=== PATIENT | female | born 1990 | race Caucasian/White ===

== ENCOUNTER 2018-05-31 13:06 | Inpatient (IN) | payer MEDICAID ==
[2018-05-31] MEDS ORDERED: Water For Irrigation,Sterile 1,000 ML Container IRR PRN (13:54)
[2018-05-31] MEDS ORDERED: Methylergonovine 0.2 MG/1 ML Amp IM PRN (13:54)
[2018-05-31] MEDS ORDERED: Sodium Chloride 0.9% 10 ML Syringe FLUSH PRN (13:54)
[2018-05-31] MEDS ORDERED: Nalbuphine 10 MG/ML 10 ML MDV IVPUSH PRN (13:54)
[2018-05-31] MEDS ORDERED: Misoprostol 200 MCG Tab PO PRN (13:54)
[2018-05-31] MEDS ORDERED: Tranexamic Acid 1,000 MG in Sodium Chloride 0.9% 100 ML IV PRN (13:54)
[2018-05-31] MEDS ORDERED: Sodium Chloride 0.9% 2.5 ML Syringe FLUSH PRN (13:54)
[2018-05-31] MEDS ORDERED: Butorphanol 1 MG/ML SDV IVPUSH PRN (13:54)
[2018-05-31] MEDS ORDERED: Carboprost Tromethamine 250 MCG/1 ML Amp IM PRN (13:54)
[2018-05-31] MEDS ORDERED: Lidocaine 1% 50 ML MDV INJECT PRN (13:54)
[2018-05-31] MEDS ORDERED: Misoprostol 25 MCG (1/4 of 100 MCG) Tab PO ONE (13:55)
[2018-05-31] MEDS ORDERED: Oxytocin/0.9 % Sodium Chloride 30 UNIT/500 ML BAG IV SCH (14:00)
[2018-05-31] MEDS ORDERED: Ampicillin 2 GM in Sodium Chloride 0.9% 100 ML IV ONE (14:30)
[2018-05-31] MEDS: Lactated Ringers 1,000 ML IV SCH ×3 (14:36→21:01)
--- NOTE | 2018-05-31 17:16 | PCM.LDHP ---
L&D History of Present Illness - General Date of Service: 05/31/18 Admit Problem/Dx: Patient Status Order with Admit Dx/Problem 05/31/18 13:14 Patient Status [ADT] Routine 05/31/18 13:54 Patient Status [ADT] Routine Admission Diagnosis/Problem Admission Diagnosis/Problem 05/31/18 17:10 28yo EDC06/25/2018 36 3/7wks gestation, A+, R-NI, GBS unknown, PROM this am at 1000. Not in active labor at that time. Source of Information: Patient History Limitations: Reports: No Limitations - History of Present Illness Pain Score: 10 Improves with: Reports: None Worsens with: Reports: None Associated Symptoms: Reports: N - Related Data Allergies/Adverse Reactions: Allergies Allergy/AdvReac Type Severity Reaction Status Date / Time No Known Allergies Allergy Verified 05/31/18 13:30 Home Medications: Home Meds Cholecalciferol (Vitamin D3) [Vitamin D3] 2 tab PO DAILY 05/31/18 [History] PNV95/Ferrous Fumarate/FA [ Tablet] 1 tab PO DAILY 05/31/18 [History] Past Medical History Genitourinary History: Reports: UTI, 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: - Past Surgical History Female Surgical History: Reports: Other (See Below) Other Female Surgeries/Procedures: Endometriosis surgery H&P Review of Systems - Review of Systems: Review Of Systems: See Below General: Reports: No Symptoms HEENT: Reports: No Symptoms Pulmonary: Reports: No Symptoms Cardiovascular: Reports: No Symptoms Gastrointestinal: Reports: No Symptoms Genitourinary: Reports: No Symptoms Musculoskeletal: Reports: No Symptoms Skin: Reports: No Symptoms Psychiatric: Reports: No Symptoms Neurological: Reports: No Symptoms Hematologic/Lymphatic: Reports: No Symptoms Immunologic: Reports: No Symptoms L&D Exam - Exam Exam: See Below - Vital Signs Weight: 70.307 kg - OB Specific Contraction Intensity: Moderate to Strong Movement: Active Heart Tones: Present Heart Tones per Min: 140 Heart Rate (FHR) Variability: Moderate (6-25 bmp) Presentation: Vertex Estimated Weight: 3100 - Felipe Score Felipe Score Cervix Position: Posterior Felipe Score Consistency: Soft (shameka) Felipe Score Effacement: >80% Felipe Score Dilation: 3-4 cm Felipe Score 's Station: -2 Felipe Score Total: 8 - Exam General: Alert, Oriented, Cooperative HEENT: Hearing Intact Lungs: Clear to Auscultation Cardiovascular: Regular Rate, Regular Rhythm, Normal S1, Normal S2 GI/Abdominal Exam: Soft Rectal Exam: Deferred Genitourinary: Cervical dilitation Back Exam: Normal Inspection, Full Range of Motion Extremities: Normal Inspection Skin: Warm, Dry, Intact Neurological: Cranial Nerves Intact, Reflexes Equal Bilateral, Strength Equal Bilateral, Normal Speech, Normal Tone Psychiatric: Alert, Normal Affect, Normal Mood - Patient Data Lab Results Last 24 hrs: Laboratory Results - last 24 hr 05/31/18 05/31/18 05/31/18 Range/Units 13:25 14:20 14:20 WBC 10.34 (4.0-11.0) K/uL RBC 3.77 L (4.30-5.90) M/uL Hgb 10.5 L (12.0-16.0) g/dL Hct 32.8 L (36.0-46.0) % MCV 87.0 (80.0-98.0) fL MCH 27.9 (27.0-32.0) pg MCHC 32.0 (31.0-37.0) g/dL RDW Std Deviation 45.3 (28.0-62.0) fl RDW Coeff of Maksim 14 (11.0-15.0) % Plt Count 149 L (150-400) K/uL MPV 12.50 H (7.40-12.00) fL Nucleated RBC % 0.0 /100WBC Nucleated RBCs # 0 K/uL Membrane Rupture POSITIVE Blood Type A POSITIVE Antibody Screen NEGATIVE Result Diagrams: 05/31/18 14:20 - Problem List (1) Supervision of normal IUP (intrauterine ) in primigravida SNOMED Code(s): 15593570, 460055940, 124371405, 062060269 ICD Code: Z34.00 - ENCNTR FOR SUPRVSN OF NORMAL FIRST , UNSP TRIMESTER Status: Acute Priority: High Current Visit: Yes Qualifiers: Trimester: third trimester Qualified Code(s): Z34.03 - Encounter for supervision of normal first , third trimester Problem List Initiated/Reviewed/Updated: Yes Orders Last 24hrs: Active Orders 24 hr Category Date Time Status Patient Status [ADT] Routine ADT 05/31/18 13:54 Active Heart Tones [RC] CONTINUOUS Care 05/31/18 13:54 Active Non Stress Test [RC] PER UNIT ROUTINE Care 05/31/18 13:14 Active Non Stress Test [RC] PER UNIT ROUTINE Care 05/31/18 13:54 Active May Shower [RC] ASDIRECTED Care 05/31/18 13:54 Active Notify Provider [RC] PRN Care 05/31/18 13:54 Active Up ad Venessa [RC] ASDIRECTED Care 05/31/18 13:14 Active Vaginal Exam [RC] Click to Edit Care 05/31/18 13:14 Active Vital Signs [RC] PER UNIT ROUTINE Care 05/31/18 13:14 Active CULTURE GROUP B STREP [RM] Routine Lab 05/31/18 14:45 Ordered Ampicillin 1 gm Med 05/31/18 18:30 Active Sodium Chloride 0.9% [Normal Saline] 50 ml IV Q4H Butorphanol [Stadol] Med 05/31/18 13:54 Active 1 mg IVPUSH Q1H PRN Carboprost Tromethamine [Hemabate DS] Med 05/31/18 13:54 Active 250 mcg IM ASDIRECTED PRN Lactated Ringers [Ringers, Lactated] 1,000 ml Med 05/31/18 14:00 Active IV ASDIRECTED Lidocaine 1% [Xylocaine 1%] Med 05/31/18 13:54 Active 50 ml INJECT .ONCE PRN Methylergonovine [Methergine] Med 05/31/18 13:54 Active 0.2 mg IM ASDIRECTED PRN Misoprostol [Cytotec] Med 05/31/18 13:54 Active 200 mcg PO .ONCE PRN Nalbuphine [Nubain] Med 05/31/18 13:54 Active 10 mg IVPUSH Q1H PRN Oxytocin/0.9 % Sodium Chloride [Oxytocin 30 Unit/500 ML Med 05/31/18 14:00 Active -NS] 30 unit in 500 ml IV TITRATE Sodium Chloride 0.9% [Saline Flush] Med 05/31/18 13:54 Active 10 ml FLUSH ASDIRECTED PRN Sodium Chloride 0.9% [Saline Flush] Med 05/31/18 13:54 Active 2.5 ml FLUSH ASDIRECTED PRN Tranexamic Acid [Cyklokapron] 1,000 mg Med 05/31/18 13:54 Active Sodium Chloride 0.9% [Normal Saline] 100 ml IV ONETIME Water For Irrigation,Sterile [Sterile Water for Med 05/31/18 13:54 Active Irrigation] 1,000 ml IRR ASDIRECTED PRN Scalp Electrode [WOMSER] Per Unit Routine Oth 05/31/18 13:54 Ordered Peripheral IV Insertion Adult [OM.PC] Routine Oth 05/31/18 13:54 Ordered Resuscitation Status Routine Resus Stat 05/31/18 13:14 Ordered Medication Orders Butorphanol Tartrate (Stadol) 1 mg IVPUSH Q1H PRN PRN Reason: Pain Carboprost Tromethamine (Hemabate Ds) 250 mcg IM ASDIRECTED PRN PRN Reason: Post Hemorrhage Tranexamic Acid 1,000 mg/ (Sodium Chloride) 110 mls @ 660 mls/hr IV ONETIME PRN PRN Reason: Bleeding Lactated Ringer's (Ringers, Lactated) 1,000 mls @ 150 mls/hr IV ASDIRECTED [facility] Last Admin: 05/31/18 14:36 Dose: 150 mls/hr Oxytocin/Sodium Chloride (Oxytocin 30 Unit/500 Ml-Ns) 30 unit in 500 mls @ 999 mls/hr IV TITRATE COUNT INCLUDES THE [facility] Ampicillin Sodium 1 gm/ Sodium (Chloride) 50 mls @ 100 mls/hr IV Q4H COUNT INCLUDES THE [facility] Lidocaine HCl (Xylocaine 1%) 50 ml INJECT .ONCE PRN PRN Reason: Laceration repair Methylergonovine Maleate (Methergine) 0.2 mg IM ASDIRECTED PRN PRN Reason: Post Hemorrhage Misoprostol (Cytotec) 200 mcg PO .ONCE PRN PRN Reason: Post Hemorrhage Nalbuphine HCl (Nubain) 10 mg IVPUSH Q1H PRN PRN Reason: Pain (severe 7-10) Last Admin: 05/31/18 16:42 Dose: 10 mg Sodium Chloride (Saline Flush) 10 ml FLUSH ASDIRECTED PRN PRN Reason: Keep Vein Open Sodium Chloride (Saline Flush) 2.5 ml FLUSH ASDIRECTED PRN PRN Reason: Keep Vein Open Sterile Water (Sterile Water For Irrigation) 1,000 ml IRR ASDIRECTED PRN PRN Reason: delivery Assessment/Plan Comment:: Labor A: 28yo EDC06/25/2018 36 3/7wks gestation, A+, R-NI, GBS unknown, PROM this am at 1000. Not in active labor at that time. P: Admit, Amp for GBS unknown, Cytotec po x1 to augment labor, epidural when in active labor, anticipate . Dr Meléndez updated
[2018-05-31] MEDS ORDERED: Ampicillin 1 GM in Sodium Chloride 0.9% 50 ML IV SCH (18:30)
--- NOTE | 2018-05-31 18:33 | PCM.PREANE ---
Preanesthetic Assessment - Anesthesia/Transfusion/Family Hx Anesthesia History: Prior Anesthesia Without Reaction Family History of Anesthesia Reaction: No Transfusion History: No Prior Transfusion(s) - Review of Systems General: No Symptoms Pulmonary: No Symptoms Cardiovascular: No Symptoms Gastrointestinal: No Symptoms Neurological: No Symptoms Other: Reports: None (Denies any personal or family hx of bleeding or clotting problems) - Physical Assessment Height: 1.63 m Weight: 70.307 kg ASA Class: 2 Mental Status: Alert & Oriented x3 Airway Class: Mallampati = 2 Dentition: Reports: Normal Dentition ROM/Head Extension: Full - Lab Values: Laboratory Last Values WBC 10.34 K/uL (4.0-11.0) 05/31/18 14:20 RBC 3.77 M/uL (4.30-5.90) L 05/31/18 14:20 Hgb 10.5 g/dL (12.0-16.0) L 05/31/18 14:20 Hct 32.8 % (36.0-46.0) L 05/31/18 14:20 MCV 87.0 fL (80.0-98.0) 05/31/18 14:20 MCH 27.9 pg (27.0-32.0) 05/31/18 14:20 MCHC 32.0 g/dL (31.0-37.0) 05/31/18 14:20 RDW Std Deviation 45.3 fl (28.0-62.0) 05/31/18 14:20 RDW Coeff of Maksim 14 % (11.0-15.0) 05/31/18 14:20 Plt Count 149 K/uL (150-400) L 05/31/18 14:20 MPV 12.50 fL (7.40-12.00) H 05/31/18 14:20 Nucleated RBC % 0.0 /100WBC 05/31/18 14:20 Nucleated RBCs # 0 K/uL 05/31/18 14:20 Membrane Rupture POSITIVE 05/31/18 13:25 Blood Type A POSITIVE 05/31/18 14:20 Antibody Screen NEGATIVE 05/31/18 14:20 - Allergies Allergies/Adverse Reactions: Allergies Allergy/AdvReac Type Severity Reaction Status Date / Time No Known Allergies Allergy Verified 05/31/18 13:30 - Acknowledgements Anesthesia Type Planned: Epidural Pt an Appropriate Candidate for the Planned Anesthesia: Yes Alternatives and Risks of Anesthesia Discussed w Pt/Guardian: Yes Pt/Guardian Understands and Agrees with Anesthesia Plan: Yes Additional Comments: Patient and significant other state that they have read and understand the blue anesthesia consent with risks and complications listed. They personally know someone who was paralyzed as the result of an epidural. PreAnesthesia Questionnaire Genitourinary History: Reports: UTI, Recurrent H[employer] IN[employer] History: Reports: - Past Surgical History Female Surgical History: Reports: Other (See Below) Other Female Surgeries/Procedures: Endometriosis surgery - SUBSTANCE USE Smoking Status *Q: Never Smoker Tobacco Use Within Last Twelve Months: No Recreational Drug Use History: No - HOME MEDS Home Medications: Home Meds Cholecalciferol (Vitamin D3) [Vitamin D3] 2 tab PO DAILY 05/31/18 [History] PNV95/Ferrous Fumarate/FA [ Tablet] 1 tab PO DAILY 05/31/18 [History] - CURRENT (IN HOUSE) MEDS Current Meds: Current Medications Butorphanol Tartrate (Stadol) 1 mg IVPUSH Q1H PRN PRN Reason: Pain Carboprost Tromethamine (Hemabate Ds) 250 mcg IM ASDIRECTED PRN PRN Reason: Post Hemorrhage Tranexamic Acid 1,000 mg/ (Sodium Chloride) 110 mls @ 660 mls/hr IV ONETIME PRN PRN Reason: Bleeding Lactated Ringer's (Ringers, Lactated) 1,000 mls @ 150 mls/hr IV ASDIRECTED [facility] Last Admin: 05/31/18 18:14 Dose: 150 mls/hr Oxytocin/Sodium Chloride (Oxytocin 30 Unit/500 Ml-Ns) 30 unit in 500 mls @ 999 mls/hr IV TITRATE [facility] Ampicillin Sodium 1 gm/ Sodium (Chloride) 50 mls @ 100 mls/hr IV Q4H [facility] Lidocaine HCl (Xylocaine 1%) 50 ml INJECT .ONCE PRN PRN Reason: Laceration repair Methylergonovine Maleate (Methergine) 0.2 mg IM ASDIRECTED PRN PRN Reason: Post Hemorrhage Misoprostol (Cytotec) 200 mcg PO .ONCE PRN PRN Reason: Post Hemorrhage Nalbuphine HCl (Nubain) 10 mg IVPUSH Q1H PRN PRN Reason: Pain (severe 7-10) Last Admin: 05/31/18 16:42 Dose: 10 mg Sodium Chloride (Saline Flush) 10 ml FLUSH ASDIRECTED PRN PRN Reason: Keep Vein Open Sodium Chloride (Saline Flush) 2.5 ml FLUSH ASDIRECTED PRN PRN Reason: Keep Vein Open Sterile Water (Sterile Water For Irrigation) 1,000 ml IRR ASDIRECTED PRN PRN Reason: delivery Discontinued Medications Ampicillin Sodium 2 gm/ Sodium (Chloride) 100 mls @ 200 mls/hr IV ONETIME ONE Stop: 05/31/18 14:59 Last Admin: 05/31/18 14:36 Dose: 200 mls/hr Fentanyl/Bupivacaine HCl (Eiqerppg-Ytzev-Bk 2 Mcg/Ml-0.125%) Confirm Administered Dose 100 mls @ as directed EP .STK-MED ONE Stop: 05/31/18 17:54 Misoprostol (Cytotec) 25 mcg PO ONETIME ONE Stop: 05/31/18 13:56 Last Admin: 05/31/18 14:39 Dose: 25 mcg
[2018-05-31] MEDS ORDERED: Witch Hazel Medicated Pads 40/Jar TOP PRN (21:19)
[2018-05-31] MEDS ORDERED: oxyCODONE 5 MG Tab PO PRN (21:19)
[2018-05-31] MEDS ORDERED: Ibuprofen 400 MG Tab PO PRN (21:19)
[2018-05-31] MEDS ORDERED: Lanolin 100% Cream 7 GM Tube TOP PRN (21:19)
[2018-05-31] MEDS ORDERED: Benzocaine/Menthol 20%-0.5% Spray 78 GM Cannister TOP PRN (21:19)
[2018-05-31] MEDS ORDERED: Docusate Sodium 100 MG Cap PO PRN (21:19)
[2018-05-31] MEDS ORDERED: Bisacodyl 10 MG Supp RECTAL PRN (21:19)
[2018-05-31] MEDS ORDERED: Acetaminophen 500 MG Tab PO PRN ×2 (21:19)
--- NOTE | 2018-05-31 21:27 | PCM.DEL ---
L & D Note - General Info Date of Service: 05/31/18 Mother's Due Date: 06/25/18 - Delivery Note Labor: Spontaneous Delivery Outcome: Livebirth Infant Delivery Method: Spontaneous Vaginal Delivery-Single Infant Delivery Mode: Spontaneous Presentation: Vertex Nuchal Cord: None Anesthesia Type: Epidural Amniotic Fluid Description: Clear Episiotomy Type: None Laceration: 2nd Degree, Perineal Suture type: Vicryl Suture size: 3-0 Placenta: Intact, Spontaneous Cord: 3 Vessels Estimated Blood Loss: 150 Resuscitation Needed: No Score 1 min: 9 Score 5 min: 9 Second Stage Interventions: Reports: Pushing, Pulls Own Legs Back Delivery Comments (Free Text/Narrative):: of viable girl, head delivered with good pushing, shoulders and body followed easily. Infant to mothers abd with RN at for evaluation. Spont cry. Delayed cord clamping. Pitocin to IVF. Cord clamped and cut by FOB. Placenta delivered grossly intact. 3VC, Bimanual normal. Inspection noted 2nd perineal lac that was repaired in the usual manor. EBL 150cc, APGARS 9/9, WT: pending. Mother and baby stable bonding well. Induction Criteria - Augmentation Estimated Pelvis: Reports: Adequate Weight Estimated:: Reports: AGA Estimated Weight if LGA: 3100 kg Reassuring Monitoring Strip: Yes Absence of Tachy Systole: Yes - General Info Date of Service: 05/31/18 Admission Dx/Problem (Free Text): Patient Status Order with Admit Dx/Problem 05/31/18 13:14 Patient Status [ADT] Routine 05/31/18 13:54 Patient Status [ADT] Routine Admission Diagnosis/Problem Admission Diagnosis/Problem 05/31/18 17:10 28yo EDC06/25/2018 36 3/7wks gestation, A+, R-NI, GBS unknown, PROM this am at 1000. Not in active labor at that time. Functional Status: Reports: Pain Controlled, Tolerating Diet - Review of Systems General: Reports: No Symptoms HEENT: Reports: No Symptoms Pulmonary: Reports: No Symptoms Cardiovascular: Reports: No Symptoms Gastrointestinal: Reports: No Symptoms Genitourinary: Reports: No Symptoms Musculoskeletal: Reports: No Symptoms Skin: Reports: No Symptoms Neurological: Reports: No Symptoms Psychiatric: Reports: No Symptoms - Patient Data Weight - Most Recent: 70.307 kg Lab Results Last 24 Hours: Laboratory Results - last 24 hr 05/31/18 05/31/18 05/31/18 Range/Units 13:25 14:20 14:20 WBC 10.34 (4.0-11.0) K/uL RBC 3.77 L (4.30-5.90) M/uL Hgb 10.5 L (12.0-16.0) g/dL Hct 32.8 L (36.0-46.0) % MCV 87.0 (80.0-98.0) fL MCH 27.9 (27.0-32.0) pg MCHC 32.0 (31.0-37.0) g/dL RDW Std Deviation 45.3 (28.0-62.0) fl RDW Coeff of Maksim 14 (11.0-15.0) % Plt Count 149 L (150-400) K/uL MPV 12.50 H (7.40-12.00) fL Nucleated RBC % 0.0 /100WBC Nucleated RBCs # 0 K/uL Membrane Rupture POSITIVE Blood Type A POSITIVE Antibody Screen NEGATIVE Med Orders - Current: Current Medications Acetaminophen (Tylenol Extra Strength) 500 mg PO Q4H PRN PRN Reason: Pain Acetaminophen (Tylenol Extra Strength) 1,000 mg PO Q4H PRN PRN Reason: Pain Benzocaine/Menthol (Dermoplast Pain Relief 20%-0.5% [place]) 78 gm TOP ASDIRECTED PRN PRN Reason: Perineal Comfort Measure Bisacodyl (Dulcolax) 10 mg RECTAL .ONCE PRN PRN Reason: Constipation Docusate Sodium (Colace) 100 mg PO BID PRN PRN Reason: Constipation Ibuprofen (Motrin) 400 mg PO Q4H PRN PRN Reason: Pain Discontinued Medications Butorphanol Tartrate (Stadol) 1 mg IVPUSH Q1H PRN PRN Reason: Pain Carboprost Tromethamine (Hemabate Ds) 250 mcg IM ASDIRECTED PRN PRN Reason: Post Hemorrhage Tranexamic Acid 1,000 mg/ (Sodium Chloride) 110 mls @ 660 mls/hr IV ONETIME PRN PRN Reason: Bleeding Lactated Ringer's (Ringers, Lactated) 1,000 mls @ 150 mls/hr IV ASDIRECTED [facility] Last Admin: 05/31/18 21:01 Dose: 999 mls/hr Oxytocin/Sodium Chloride (Oxytocin 30 Unit/500 Ml-Ns) 30 unit in 500 mls @ 999 mls/hr IV TITRATE [facility] Last Admin: 05/31/18 20:48 Dose: 999 mls/hr Ampicillin Sodium 2 gm/ Sodium (Chloride) 100 mls @ 200 mls/hr IV ONETIME ONE Stop: 05/31/18 14:59 Last Admin: 05/31/18 14:36 Dose: 200 mls/hr Ampicillin Sodium 1 gm/ Sodium (Chloride) 50 mls @ 100 mls/hr IV Q4H [facility] Last Admin: 05/31/18 18:35 Dose: 100 mls/hr Fentanyl/Bupivacaine HCl (Flixpskd-Xvwca-Jg 2 Mcg/Ml-0.125%) Confirm Administered Dose 100 mls @ as directed EP .STK-MED ONE Stop: 05/31/18 17:54 Last Admin: 05/31/18 19:28 Dose: Not Given Lidocaine HCl (Xylocaine 1%) 50 ml INJECT .ONCE PRN PRN Reason: Laceration repair Last Admin: 05/31/18 20:50 Dose: 50 ml Methylergonovine Maleate (Methergine) 0.2 mg IM ASDIRECTED PRN PRN Reason: Post Hemorrhage Misoprostol (Cytotec) 200 mcg PO .ONCE PRN PRN Reason: Post Hemorrhage Misoprostol (Cytotec) 25 mcg PO ONETIME ONE Stop: 05/31/18 13:56 Last Admin: 05/31/18 14:39 Dose: 25 mcg Nalbuphine HCl (Nubain) 10 mg IVPUSH Q1H PRN PRN Reason: Pain (severe 7-10) Last Admin: 05/31/18 16:42 Dose: 10 mg Sodium Chloride (Saline Flush) 10 ml FLUSH ASDIRECTED PRN PRN Reason: Keep Vein Open Sodium Chloride (Saline Flush) 2.5 ml FLUSH ASDIRECTED PRN PRN Reason: Keep Vein Open Sterile Water (Sterile Water For Irrigation) 1,000 ml IRR ASDIRECTED PRN PRN Reason: delivery - Exam General: Alert, Cooperative Lungs: Normal Respiratory Effort Cardiovascular: Tachycardia (Female) Exam: Vaginal Bleeding Back Exam: Normal Inspection, Full Range of Motion Extremities: Normal Inspection, Normal Range of Motion, Non-Tender, No Pedal Edema, Normal Capillary Refill Skin: Warm, Dry, Intact Wound/Incisions: Healing Well Neurological: No New Focal Deficit, Normal Speech, Normal Tone Psy/Mental Status: Alert, Normal Affect, Normal Mood - Problem List & Annotations (1) Supervision of normal IUP (intrauterine ) in primigravida SNOMED Code(s): 91453457, 761715913, 593867607, 735359917 Code(s): Z34.00 - ENCNTR FOR SUPRVSN OF NORMAL FIRST , UNSP TRIMESTER Status: Acute Priority: High Current Visit: Yes Qualifiers: Trimester: third trimester Qualified Code(s): Z34.03 - Encounter for supervision of normal first , third trimester (2) (normal spontaneous vaginal delivery) SNOMED Code(s): 49127343 Code(s): O80 - ENCOUNTER FOR FULL-TERM UNCOMPLICATED DELIVERY Status: Acute Priority: High Current Visit: Yes - Problem List Review Problem List Initiated/Reviewed/Updated: Yes - My Orders Last 24 Hours: My Active Orders 05/31/18 13:14 Non Stress Test [RC] PER UNIT ROUTINE Up ad Venessa [RC] ASDIRECTED Vaginal Exam [RC] Click to Edit Vital Signs [RC] PER UNIT ROUTINE 05/31/18 13:54 Heart Tones [RC] CONTINUOUS Non Stress Test [RC] PER UNIT ROUTINE May Shower [RC] ASDIRECTED Notify Provider [RC] PRN 05/31/18 21:19 May Shower [RC] ASDIRECTED Up ad Venessa [RC] ASDIRECTED Vital Signs [RC] PER UNIT ROUTINE Acetaminophen [Tylenol Extra Strength] 1,000 mg PO Q4H PRN Acetaminophen [Tylenol Extra Strength] 500 mg PO Q4H PRN Benzocaine/Menthol [Dermoplast Pain Relief 20%-0.5% Frederick] 78 gm TOP ASDIRECTED PRN Bisacodyl [Dulcolax] 10 mg RECTAL .ONCE PRN Docusate Sodium [Colace] 100 mg PO BID PRN Ibuprofen [Motrin] 400 mg PO Q4H PRN Ibuprofen [Motrin] 800 mg PO Q6H PRN Lanolin [Lansinoh HPA] See Dose Instructions TOP ASDIRECTED PRN Witch [place] [Tucks] 1 pad TOP ASDIRECTED PRN oxyCODONE 5 mg PO Q2H PRN Assess Lochia [WOMSER] Per Unit Routine Assess Uterine Involution [WOMSER] Per Unit Routine Peripheral IV Discontinue [OM.PC] Routine Resuscitation Status Routine 05/31/18 21:20 Patient Status [ADT] Routine 06/01/18 Breakfast Regular Diet [DIET] - Plan Plan:: Labor A: 28yo EDC06/25/2018 36 3/7wks gestation, A+, R-NI, GBS unknown, PROM this am at 1000. Not in active labor at that time. P: Admit, Amp for GBS unknown, Cytotec po x1 to augment labor, epidural when in active labor, anticipate . Dr Meléndez updated Delivery A: of viable girl, APGARS 9/9, Wt pending. 2nd Deg lac with repair, EBL 150cc, mother and baby stable, bonding well P; routine pp plan of care
[2018-06-01] MEDS: Ibuprofen 800 MG Tab PO PRN ×3 (04:19→22:09)
--- NOTE | 2018-06-01 12:06 | PCM48HPAN ---
Post Anesthesia Note - EVALUATION WITHIN 48HRS OF ANESTHETIC Vital Signs in Normal Range: Yes Patient Participated in Evaluation: Yes Respiratory Function Stable: Yes Airway Patent: Yes Cardiovascular Function Stable: Yes Hydration Status Stable: Yes Pain Control Satisfactory: Yes Nausea and Vomiting Control Satisfactory: Yes Mental Status Recovered: Yes Resp Rate: 15 - COMMENTS/OBSERVATIONS Free Text/Narrative:: Denies any complaints and states that epidural worked well.
--- NOTE | 2018-06-01 18:38 | PCM.PNPP ---
- General Info Date of Service: 06/01/18 Admission Dx/Problem (Free Text): Patient Status Order with Admit Dx/Problem 05/31/18 13:14 Patient Status [ADT] Routine 05/31/18 13:54 Patient Status [ADT] Routine Admission Diagnosis/Problem Admission Diagnosis/Problem 05/31/18 17:10 28yo EDC06/25/2018 36 3/7wks gestation, A+, R-NI, GBS unknown, PROM this am at 1000. Not in active labor at that time. Functional Status: Reports: Pain Controlled, Tolerating Diet, Ambulating, Urinating - Review of Systems General: Reports: No Symptoms HEENT: Reports: No Symptoms Pulmonary: Reports: No Symptoms Cardiovascular: Reports: No Symptoms Gastrointestinal: Reports: No Symptoms Genitourinary: Reports: No Symptoms Musculoskeletal: Reports: No Symptoms Skin: Reports: No Symptoms Neurological: Reports: No Symptoms Psychiatric: Reports: No Symptoms - General Info Date of Service: 06/01/18 - Patient Data Vital Signs - Most Recent: Last Vital Signs Temp 36.6 C 06/01/18 08:00 Pulse 73 06/01/18 08:00 Resp 15 06/01/18 12:06 BP 108/57 L 06/01/18 08:00 Pulse Ox 98 06/01/18 08:00 Weight - Most Recent: 70.307 kg Med Orders - Current: Current Medications Acetaminophen (Tylenol Extra Strength) 500 mg PO Q4H PRN PRN Reason: Pain Acetaminophen (Tylenol Extra Strength) 1,000 mg PO Q4H PRN PRN Reason: Pain Benzocaine/Menthol (Dermoplast Pain Relief 20%-0.5% [place]) 78 gm TOP ASDIRECTED PRN PRN Reason: Perineal Comfort Measure Last Admin: 05/31/18 23:00 Dose: 1 can Bisacodyl (Dulcolax) 10 mg RECTAL .ONCE PRN PRN Reason: Constipation Docusate Sodium (Colace) 100 mg PO BID PRN PRN Reason: Constipation Emollient Ointment (Lansinoh Hpa) 0 gm TOP ASDIRECTED PRN PRN Reason: Sore Nipples Last Admin: 05/31/18 23:00 Dose: 7 gm Ibuprofen (Motrin) 400 mg PO Q4H PRN PRN Reason: Pain Ibuprofen (Motrin) 800 mg PO Q6H PRN PRN Reason: Pain Last Admin: 06/01/18 11:23 Dose: 800 mg Oxycodone HCl (Oxycodone) 5 mg PO Q2H PRN PRN Reason: Pain Witch [place] (Tucks) 1 pad TOP ASDIRECTED PRN PRN Reason: comfort care Last Admin: 05/31/18 22:30 Dose: 1 tub Discontinued Medications Butorphanol Tartrate (Stadol) 1 mg IVPUSH Q1H PRN PRN Reason: Pain Carboprost Tromethamine (Hemabate Ds) 250 mcg IM ASDIRECTED PRN PRN Reason: Post Hemorrhage Tranexamic Acid 1,000 mg/ (Sodium Chloride) 110 mls @ 660 mls/hr IV ONETIME PRN PRN Reason: Bleeding Lactated Ringer's (Ringers, Lactated) 1,000 mls @ 150 mls/hr IV ASDIRECTED [facility] Last Admin: 05/31/18 21:01 Dose: 999 mls/hr Oxytocin/Sodium Chloride (Oxytocin 30 Unit/500 Ml-Ns) 30 unit in 500 mls @ 999 mls/hr IV TITRATE [facility] Last Admin: 05/31/18 20:48 Dose: 999 mls/hr Ampicillin Sodium 2 gm/ Sodium (Chloride) 100 mls @ 200 mls/hr IV ONETIME ONE Stop: 05/31/18 14:59 Last Admin: 05/31/18 14:36 Dose: 200 mls/hr Ampicillin Sodium 1 gm/ Sodium (Chloride) 50 mls @ 100 mls/hr IV Q4H [facility] Last Admin: 05/31/18 18:35 Dose: 100 mls/hr Fentanyl/Bupivacaine HCl (Acxmjrqm-Vnhut-Ry 2 Mcg/Ml-0.125%) Confirm Administered Dose 100 mls @ as directed EP .STK-MED ONE Stop: 05/31/18 17:54 Last Admin: 05/31/18 19:28 Dose: Not Given Lidocaine HCl (Xylocaine 1%) 50 ml INJECT .ONCE PRN PRN Reason: Laceration repair Last Admin: 05/31/18 20:50 Dose: 50 ml Methylergonovine Maleate (Methergine) 0.2 mg IM ASDIRECTED PRN PRN Reason: Post Hemorrhage Misoprostol (Cytotec) 200 mcg PO .ONCE PRN PRN Reason: Post Hemorrhage Misoprostol (Cytotec) 25 mcg PO ONETIME ONE Stop: 05/31/18 13:56 Last Admin: 05/31/18 14:39 Dose: 25 mcg Nalbuphine HCl (Nubain) 10 mg IVPUSH Q1H PRN PRN Reason: Pain (severe 7-10) Last Admin: 05/31/18 16:42 Dose: 10 mg Sodium Chloride (Saline Flush) 10 ml FLUSH ASDIRECTED PRN PRN Reason: Keep Vein Open Sodium Chloride (Saline Flush) 2.5 ml FLUSH ASDIRECTED PRN PRN Reason: Keep Vein Open Sterile Water (Sterile Water For Irrigation) 1,000 ml IRR ASDIRECTED PRN PRN Reason: delivery - Infant Interaction Disposition, : [place] in Room with Family Interaction: Holding Infant Feeding: Breastfed Infant; Nursed Well, Continues to Breastfeed Support Person: Significant Other - Recovery Exam Fundal Tone: Firm Fundal Level: 1 Fingerbreadths Below Umbilicus Fundal Placement: Midline Lochia Amount: Scant Lochia Color: Rubra/Red Perineum Description: Other (see below) Other Perinuem Description: 2nd degree MLL Episiotomy/Laceration: Approximated Bladder Status: Voiding - Exam General: Alert, Oriented, Cooperative Lungs: Normal Respiratory Effort GI/Abdominal Exam: Soft, Non-Tender Extremities: Normal Inspection, Normal Range of Motion, Non-Tender, No Pedal Edema, Normal Capillary Refill Skin: Warm, Dry, Intact Wound/Incisions: Healing Well Neurological: No New Focal Deficit, Normal Speech, Normal Tone, Strength Equal Bilateral Psy/Mental Status: Alert, Normal Affect, Normal Mood - Problem List & Annotations (1) Supervision of normal IUP (intrauterine ) in primigravida SNOMED Code(s): 97804235, 151671272, 336263624, 116275673 Code(s): Z34.00 - ENCNTR FOR SUPRVSN OF NORMAL FIRST , UNSP TRIMESTER Status: Acute Priority: High Current Visit: Yes Qualifiers: Trimester: third trimester Qualified Code(s): Z34.03 - Encounter for supervision of normal first , third trimester (2) (normal spontaneous vaginal delivery) SNOMED Code(s): 76572308 Code(s): O80 - ENCOUNTER FOR FULL-TERM UNCOMPLICATED DELIVERY Status: Acute Priority: High Current Visit: Yes - Problem List Review Problem List Initiated/Reviewed/Updated: Yes - My Orders Last 24 Hours: My Active Orders 05/31/18 21:19 May Shower [RC] ASDIRECTED Up ad Venessa [RC] ASDIRECTED Vital Signs [RC] PER UNIT ROUTINE Acetaminophen [Tylenol Extra Strength] 1,000 mg PO Q4H PRN Acetaminophen [Tylenol Extra Strength] 500 mg PO Q4H PRN Benzocaine/Menthol [Dermoplast Pain Relief 20%-0.5% [place]] 78 gm TOP ASDIRECTED PRN Bisacodyl [Dulcolax] 10 mg RECTAL .ONCE PRN Docusate Sodium [Colace] 100 mg PO BID PRN Ibuprofen [Motrin] 400 mg PO Q4H PRN Ibuprofen [Motrin] 800 mg PO Q6H PRN Lanolin [Lansinoh HPA] See Dose Instructions TOP ASDIRECTED PRN Witch [place] [Tucks] 1 pad TOP ASDIRECTED PRN oxyCODONE 5 mg PO Q2H PRN Assess Lochia [WOMSER] Per Unit Routine Assess Uterine Involution [WOMSER] Per Unit Routine Peripheral IV Discontinue [OM.PC] Routine Resuscitation Status Routine 05/31/18 21:20 Patient Status [ADT] Routine 06/01/18 Breakfast Regular Diet [DIET] - Plan Plan:: Labor A: 28yo EDC06/25/2018 36 3/7wks gestation, A+, R-NI, GBS unknown, PROM this am at 1000. Not in active labor at that time. P: Admit, Amp for GBS unknown, Cytotec po x1 to augment labor, epidural when in active labor, anticipate . Dr Meléndez updated Delivery A: of viable girl, APGARS 9/9, Wt pending. 2nd Deg lac with repair, EBL 150cc, mother and baby stable, bonding well P; routine pp plan of care PP day 1 A: VSS, AF, FF 2bu, lochia small, breast feeding, stable P: Continue poc
[2018-06-02] MEDS: Ibuprofen 800 MG Tab PO PRN ×2 (06:07→12:22)
--- NOTE | 2018-06-02 09:18 | PCM.DCSUM1 ---
Discharge Summary - Hospital Course Free Text/Narrative:: Discharge home with infant. Follow up in 6 weeks for post visit. - Discharge Data Discharge Date: 06/02/18 Discharge Disposition: Home, Self-Care 01 Condition: Good - Discharge Diagnosis/Problem(s) (1) Supervision of normal IUP (intrauterine ) in primigravida SNOMED Code(s): 29733154, 552659796, 149803637, 445981004 ICD Code: Z34.00 - ENCNTR FOR SUPRVSN OF NORMAL FIRST , UNSP TRIMESTER Status: Acute Priority: High Current Visit: Yes Qualifiers: Trimester: third trimester Qualified Code(s): Z34.03 - Encounter for supervision of normal first , third trimester (2) (normal spontaneous vaginal delivery) SNOMED Code(s): 58848770 ICD Code: O80 - ENCOUNTER FOR FULL-TERM UNCOMPLICATED DELIVERY Status: Acute Priority: High Current Visit: Yes - Patient Instructions Diet: Usual Diet as Tolerated Activity: As Tolerated, No Strenuous Activities, Rest and Relax Today Driving: May Drive Today Showering/Bathing: May Shower Notify Provider of: Fever, Increased Pain, Swelling and Redness, Nausea and/or Vomiting Other/Special Instructions: Discharge home with infant. Follow up in 6 weeks for post visit. - Discharge Plan Home Medications: Home Meds Cholecalciferol (Vitamin D3) [Vitamin D3] 2 tab PO DAILY 05/31/18 [History] PNV95/Ferrous Fumarate/FA [ Tablet] 1 tab PO DAILY 05/31/18 [History] Referrals: [facility] [Outside] Milly Pisano CNM [Mid-] - 07/12/18 8:30 am - General Info Date of Service: 06/02/18 Admission Dx/Problem (Free Text: Patient Status Order with Admit Dx/Problem 05/31/18 13:14 Patient Status [ADT] Routine 05/31/18 13:54 Patient Status [ADT] Routine Admission Diagnosis/Problem Admission Diagnosis/Problem 05/31/18 17:10 28yo EDC06/25/2018 36 3/7wks gestation, A+, R-NI, GBS unknown, PROM this am at 1000. Not in active labor at that time. Functional Status: Reports: Pain Controlled, Tolerating Diet, Ambulating, Urinating - Review of Systems General: Reports: No Symptoms HEENT: Reports: No Symptoms Pulmonary: Reports: No Symptoms Cardiovascular: Reports: No Symptoms Gastrointestinal: Reports: No Symptoms Genitourinary: Reports: No Symptoms Musculoskeletal: Reports: No Symptoms Skin: Reports: No Symptoms Neurological: Reports: No Symptoms Psychiatric: Reports: No Symptoms - Patient Data Vitals - Most Recent: Last Vital Signs Temp 36.5 C 06/02/18 08:35 Pulse 73 06/02/18 08:35 Resp 16 06/02/18 08:35 BP 115/70 06/02/18 08:35 Pulse Ox 97 06/02/18 08:35 Weight - Most Recent: 70.307 kg Med Orders - Current: Current Medications Acetaminophen (Tylenol Extra Strength) 500 mg PO Q4H PRN PRN Reason: Pain Acetaminophen (Tylenol Extra Strength) 1,000 mg PO Q4H PRN PRN Reason: Pain Benzocaine/Menthol (Dermoplast Pain Relief 20%-0.5% [place]) 78 gm TOP ASDIRECTED PRN PRN Reason: Perineal Comfort Measure Last Admin: 05/31/18 23:00 Dose: 1 can Bisacodyl (Dulcolax) 10 mg RECTAL .ONCE PRN PRN Reason: Constipation Docusate Sodium (Colace) 100 mg PO BID PRN PRN Reason: Constipation Emollient Ointment (Lansinoh Hpa) 0 gm TOP ASDIRECTED PRN PRN Reason: Sore Nipples Last Admin: 05/31/18 23:00 Dose: 7 gm Ibuprofen (Motrin) 400 mg PO Q4H PRN PRN Reason: Pain Ibuprofen (Motrin) 800 mg PO Q6H PRN PRN Reason: Pain Last Admin: 06/02/18 06:07 Dose: 800 mg Oxycodone HCl (Oxycodone) 5 mg PO Q2H PRN PRN Reason: Pain Witch [place] (Tucks) 1 pad TOP ASDIRECTED PRN PRN Reason: comfort care Last Admin: 05/31/18 22:30 Dose: 1 tub Discontinued Medications Butorphanol Tartrate (Stadol) 1 mg IVPUSH Q1H PRN PRN Reason: Pain Carboprost Tromethamine (Hemabate Ds) 250 mcg IM ASDIRECTED PRN PRN Reason: Post Hemorrhage Tranexamic Acid 1,000 mg/ (Sodium Chloride) 110 mls @ 660 mls/hr IV ONETIME PRN PRN Reason: Bleeding Lactated Ringer's (Ringers, Lactated) 1,000 mls @ 150 mls/hr IV ASDIRECTED [facility] Last Admin: 05/31/18 21:01 Dose: 999 mls/hr Oxytocin/Sodium Chloride (Oxytocin 30 Unit/500 Ml-Ns) 30 unit in 500 mls @ 999 mls/hr IV TITRATE [facility] Last Admin: 05/31/18 20:48 Dose: 999 mls/hr Ampicillin Sodium 2 gm/ Sodium (Chloride) 100 mls @ 200 mls/hr IV ONETIME ONE Stop: 05/31/18 14:59 Last Admin: 05/31/18 14:36 Dose: 200 mls/hr Ampicillin Sodium 1 gm/ Sodium (Chloride) 50 mls @ 100 mls/hr IV Q4H [facility] Last Admin: 05/31/18 18:35 Dose: 100 mls/hr Fentanyl/Bupivacaine HCl (Aagpoaeq-Jzivw-Ky 2 Mcg/Ml-0.125%) Confirm Administered Dose 100 mls @ as directed EP .STK-MED ONE Stop: 05/31/18 17:54 Last Admin: 05/31/18 19:28 Dose: Not Given Lidocaine HCl (Xylocaine 1%) 50 ml INJECT .ONCE PRN PRN Reason: Laceration repair Last Admin: 05/31/18 20:50 Dose: 50 ml Methylergonovine Maleate (Methergine) 0.2 mg IM ASDIRECTED PRN PRN Reason: Post Hemorrhage Misoprostol (Cytotec) 200 mcg PO .ONCE PRN PRN Reason: Post Hemorrhage Misoprostol (Cytotec) 25 mcg PO ONETIME ONE Stop: 05/31/18 13:56 Last Admin: 05/31/18 14:39 Dose: 25 mcg Nalbuphine HCl (Nubain) 10 mg IVPUSH Q1H PRN PRN Reason: Pain (severe 7-10) Last Admin: 05/31/18 16:42 Dose: 10 mg Sodium Chloride (Saline Flush) 10 ml FLUSH ASDIRECTED PRN PRN Reason: Keep Vein Open Sodium Chloride (Saline Flush) 2.5 ml FLUSH ASDIRECTED PRN PRN Reason: Keep Vein Open Sterile Water (Sterile Water For Irrigation) 1,000 ml IRR ASDIRECTED PRN PRN Reason: delivery - Exam General: Reports: Alert, Oriented, Cooperative, No Acute Distress Lungs: Reports: Normal Respiratory Effort GI/Abdominal Exam: Soft, Non-Tender (Female) Exam: Vaginal Bleeding Rectal (Female) Exam: Deferred Back Exam: Reports: Normal Inspection, Full Range of Motion Extremities: Normal Inspection, Normal Range of Motion, Non-Tender, No Pedal Edema, Normal Capillary Refill Skin: Reports: Warm, Dry, Intact Wound/Incisions: Reports: Healing Well Neurological: Reports: No New Focal Deficit, Normal Speech, Normal Tone, Strength Equal Bilateral Psy/Mental Status: Reports: Alert, Normal Affect, Normal Mood
[2018-06-02] MEDS ORDERED: Diphtheria,Pertussis(Acell),Tetanus Vaccine 0.5 ML Syringe IM ONE (09:19)
[2018-06-02] MEDS ORDERED: Measles, Mumps & Rubella Vaccine 0.5 ML SDV SUBCUT ONE (12:43)
== END 2018-06-02 15:40 | disposition home or self-care (01) | DRG 775 ==
LOC: MW.OBCHECK 13:06 → MW.OB 14:09 → OBSVTOIN 20:47 → MW.OB 20:47
PROVIDERS: ADMIT Obstetrics & Gynecology; ATTEND Obstetrics & Gynecology
PROC: 10E0XZZ Delivery of Products of Conception, External Approach (ICD-10-PCS; principal; 2018-05-31)
PROC: 0KQM0ZZ Repair Perineum Muscle, Open Approach (ICD-10-PCS; 2018-05-31)
PROC: 3E0234Z Introduction of Serum, Toxoid and Vaccine into Muscle, Percutaneous Approach (ICD-10-PCS; 2018-06-02)
DX: O42.013 Preterm premature rupture of membranes, onset of labor within 24 hours of rupture, third trimester (principal); O70.1 Second degree perineal laceration during delivery; Z3A.36 36 weeks gestation of pregnancy; Z37.0 Single live birth; Z23 Encounter for immunization
CPT/HCPCS: 36415; 51702; 59025; 59409; 84112; 85027; 86850; 86900; 86901; 90471; 90707; A9270-GY; J0290; J2300; J2590; J7030; J7050; J7120

== ENCOUNTER 2022-08-26 14:13 | Emergency (ER) | payer MEDICAID ==
[2022-08-26] MEDS ORDERED: Lidocaine 1% 5 ML VIAL INJECT ONE (15:18)
== END 2022-08-26 15:51 | disposition home or self-care (01) ==
LOC: MW.ED 14:13
DX: N75.1 Abscess of Bartholin's gland (principal)
CPT/HCPCS: 56420; 87070; 87077; 87186; 87205; 99283; 99283-25